=== PATIENT | female | born 1975 | race Caucasian/White ===

== ENCOUNTER 2020-07-18 14:50 | Outpatient (CLI) | payer MEDICAID | END 2020-07-18 23:59 | disposition home or self-care (01) | LOC: LAB.S 14:50 | PROVIDERS: ATTEND Physician Assistant | DX: L08.9 Local infection of the skin and subcutaneous tissue, unspecified (principal) | CPT/HCPCS: 87070; 87205 ==

== ENCOUNTER 2021-02-25 08:46 | Emergency (ER) | payer MEDICAID ==
[2021-02-25] MEDS ORDERED: DEXAMETHASONE 10 MG/ML VIAL PO STA (09:13)
[2021-02-25 09:15] LABS: RAPID STREP SCREEN Negative (Negative)
--- NOTE | 2021-02-25 09:15 | ED Physician Documentation ---
History of Present Illness - Stated complaint Stated Complaint: THROAT PX - Chief complaint Chief Complaint: Heent - History obtained from History obtained from: Patient - History of Present Illness Timing: How many days ago (4) Pain level max: 9 Pain level now: 7 - Additonal information Additional information: Patient is a 45-year-old female who complains of a sore throat for the past 4 days. Worse with swallowing, nothing makes it better. Has not taken anything for the pain. No fevers. Occasional chills. No cough, congestion or rhinorrhea. Has had 1 Covid vaccination. No abdominal pain, nausea or vomiting. No rash. 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: section, Tubal ligation, Other - Present Medications Home Medications: Ambulatory Orders Medication Instructions Recorded Confirmed Fluconazole [Diflucan] 1 tablet PO ONCE 1 Days #1 tablet 02/25/21 Penicillin V Potassium 500 mg PO Q6HR #40 tablet 02/25/21 - Allergies Allergies/Adverse Reactions: Allergies Allergy/AdvReac Type Severity Reaction Status Date / Time naproxen Allergy Severe Respiratory Verified 02/25/21 08:53 - Social History Does the pt smoke?: Yes Smoking Status: Current every day smoker Does the pt drink ETOH?: Yes Does the pt have substance abuse?: Yes Substance Use and Type: Marijuana - Immunizations Immunizations are current?: Yes - POLST Patient has POLST: No PD ED PE NORMAL - Vitals Vital signs reviewed: Yes - General General: Alert and oriented X 3, No acute distress - HEENT HEENT: PERRL, Moist mucous membranes, Other (Posterior oropharynx is erythematous with tonsillar exudates. Normal phonation. No trismus. Uvula midline.) - Neck Neck: Supple, no meningeal sign, Other (shotty anterior LAD) - Cardiac Cardiac: RRR, Strong equal pulses - Respiratory Respiratory: No respiratory distress, Clear bilaterally - Abdomen Abdomen: Soft, Non tender, Non distended - Derm Derm: Warm and dry, No rash - Neuro Neuro: Alert and oriented X 3 - Psych Psych: Normal mood, Normal affect Results - Vitals Vitals: Vital Signs - 24 hr 02/25/21 02/25/21 08:54 09:55 Temperature 37 C 36.8 C Heart Rate 124 H 112 H Respiratory 22 20 Rate Blood Pressure 143/81 H 137/86 H O2 Saturation 97 96 Oxygen O2 Source Room air - Labs Labs: Laboratory Tests 02/25/21 08:05 Group A Strep Rapid Negative PD MEDICAL DECISION MAKING - ED course Complexity details: reviewed results, re-evaluated patient, considered differential, d/w patient ED course: Patient with what appears to be streptococcal pharyngitis. She is well- appearing, nontoxic. Afebrile. Tolerating p.o. without difficulty. Given dexamethasone here. Will place on antibiotics for home. Encouraged continued hydration. Can utilize Tylenol and Motrin for pain at home. Patient counseled regarding signs and symptoms for which I believe and urgent re-evaluation would be necessary. Patient with good understanding of and agreement to plan and is comfortable going home at this time This document was made in part using voice recognition software. While efforts are made to proofread this document, sound alike and grammatical errors may occur. Departure - Departure Disposition: 01 Home, Self Care Clinical Impression: Pharyngitis Qualifiers: Pharyngitis/tonsillitis etiology: unspecified etiology Qualified Code(s): J02.9 - Acute pharyngitis, unspecified Condition: Good Instructions: ED Strep Pharyngitis Poss Follow-Up: your,doctor as needed [Other] Prescriptions: Penicillin V Potassium 500 mg PO Q6HR #40 tablet Fluconazole [Diflucan] 1 tablet PO ONCE 1 Days #1 tablet Comments: Your prescription was sent to [facility] in [place]. Take all antibiotics until gone. This should start to improve within the next 24 hours. Return if you worsen. Discharge Date/Time: 02/25/21 09:55
[2021-02-25] MEDS ORDERED: CHERRY SYRUP 10 ML UDC PO STA (09:16)
[2021-02-25 09:56] VITALS: BP 137/86
== END 2021-02-25 09:55 | disposition home or self-care (01) ==
LOC: ED 08:46
DX: J02.9 Acute pharyngitis, unspecified (principal); Z20.822 Contact with and (suspected) exposure to COVID-19; F17.200 Nicotine dependence, unspecified, uncomplicated
CPT/HCPCS: 87070; 87430; 87635; 99283; 99284; A9270

== ENCOUNTER 2021-02-26 19:54 | Emergency (ER) | payer MEDICAID ==
--- NOTE | 2021-02-26 20:08 | ED Physician Documentation ---
History of Present Illness - Stated complaint Stated Complaint: SORE THROAT/PX - Chief complaint Chief Complaint: Heent - History obtained from History obtained from: Patient - Additonal information Additional information: 45-year-old female who presents with worsening sore throat. Was seen yesterday and diagnosed with strep throat per her symptoms, started on amoxicillin and states pain and swelling are worse today. She is having difficulty opening her mouth or swallowing or turning head side to side. She reports increased swelling and pain particularly on the left side of the neck into the left ear. She is not sure if she has had any fever, but generally feels cold and unwell. She has not been able to tolerate much p.o. today due to pain. She took a Percocet that had leftover which did help somewhat with the pain. Denies chance of , states tubes are tied. 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: Yes Does the pt have substance abuse?: Yes - Immunizations Immunizations are current?: Yes - POLST Patient has POLST: No PD ED PE NORMAL - Vitals Vital signs reviewed: Yes - General General: Alert and oriented X 3, Well developed/nourished, Other (Appears as though she does not feel well) - HEENT HEENT: Atraumatic, Moist mucous membranes, Other (Patient throat is quite sw ollen, increased swelling on the left side 3+ tonsils as compared to the right 2+ uvula midline, mild trismus. There is significant left anterior cervical lymphadenopathy and visible left neck swelling.) - Neck Neck: Supple, no meningeal sign, Other (Left anterior cervical lymphadenopathy). No: No adenopathy - Cardiac Cardiac: RRR (Tachycardic), No murmur - Respiratory Respiratory: No respiratory distress, Clear bilaterally - Abdomen Abdomen: Normal bowel sounds, Soft, Non tender, Non distended - Derm Derm: Normal color, Warm and dry, No rash - Extremities Extremities: No deformity, No tenderness to palpate, Normal ROM s pain - Neuro Neuro: Alert and oriented X 3 Eye Opening: Spontaneous Motor: Obeys Commands Verbal: Oriented GCS Score: 15 - Psych Psych: Normal mood, Normal affect Results - Vitals Vitals: Vital Signs - 24 hr 02/26/21 02/26/21 02/26/21 19:57 20:10 21:18 Temperature 36.5 C 36.5 C 36.6 C Heart Rate 113 H 101 H 99 Respiratory 16 16 18 Rate Blood Pressure 150/86 H 150/86 H 132/85 H O2 Saturation 99 99 99 02/26/21 22:18 Temperature 36.6 C Heart Rate 99 Respiratory 19 Rate Blood Pressure 140/97 H O2 Saturation 96 Oxygen O2 Source Room air - Labs Labs: Laboratory Tests 02/26/21 02/26/21 20:32 20:32 WBC 16.9 H RBC 4.30 Hgb 13.3 Hct 39.5 MCV 91.9 MCH 30.9 MCHC 33.7 RDW 12.1 Plt Count 322 MPV 9.4 Neut # (Auto) Not Reportable Lymph # (Auto) Not Reportable Mcn[place] # (Auto) Not Reportable Eos # (Auto) Not Reportable Baso # (Auto) Not Reportable Absolute Nucleated RBC Not Reportable Total Counted 100 Band Neuts % (Manual) 0 Abnorm Lymph % (Manual) 0 Nucleated RBC % Not Reportable Neutrophils # (Manual) 10.0 H Lymphocytes # (Manual) 4.1 H Monocytes # (Manual) 2.7 H Eosinophils # (Manual) 0.2 Basophils # (Manual) 0.0 Differential Comment MANUAL DIFFERENTIAL WBC Morphology NORMAL APPEARANCE Platelet Estimate NORMAL (130-450,000) Platelet Morphology NORMAL APPEARANCE RBC Morph Micro Appear NORMAL APPEARANCE Sodium 137 Potassium 3.6 Chloride 103 Carbon Dioxide 26 Anion Gap 8.0 BUN 19 Creatinine 0.5 Estimated GFR (MDRD) 134 Glucose 107 H Calcium 9.4 Total Bilirubin 0.5 AST 14 ALT 20 Alkaline Phosphatase 69 Total Protein 7.6 Albumin 4.1 Globulin 3.5 Albumin/Globulin Ratio 1.2 Lipase 204 H PD MEDICAL DECISION MAKING - ED course Complexity details: reviewed results, re-evaluated patient, considered differential, d/w patient, d/w leadership development consultant ED course: This is a 45-year-old female who presented with acute worsening of sore throat primarily on the left side. Her clinical exam was suspicious for a peritonsillar abscess therefore I proceeded with a CT scan of her neck and administered Decadron, Unasyn, morphine. CT confirmed a 2 cm left peritonsillar abscess. Patient is in no respiratory distress, she is able to lay flat and her airway is patent. She is not drooling or stridorous. She reports some relief after morphine and Decadron. I discussed this case with the oral maxillofacial surgeon Dr. Real who advised to give a second dose of Decadron, and start the patient on Augmentin and have her follow-up in his clinic at 8 AM tomorrow. Patient was advised of these instructions including remaining n.p.o. after midnight and arriving to the clinic at 8 AM for possible I&D of peritonsillar abscess. She was provided with the correct address for the clinic and phone number to call if there were issues attending the appointment. The patient was given 4 tablets of [place] for use overnight as needed. She will miner pick Augmentin in the morning, I gave her a dose of Unasyn here tonight. She is to return to the ER at any point time if she feels worse or any respiratory distress. Departure - Departure Disposition: 01 Home, Self Care Clinical Impression: Peritonsillar abscess Condition: Good Follow-Up: Vu Real DDS [Provider Admit Priv/Credential] - Prescriptions: Amox/Clav 875/125 [Augmentin] 1 each PO Q12H #20 tablet Ondansetron Odt [Zofran] 4 mg TL Q6H PRN #10 tablet PRN Reason: Nausea / Vomiting Comments: You presented with a worsening sore throat and were found on CT scan to have a left peritonsillar abscess. We have given you additional steroids and pain medication to help decrease the swelling and pain in this area. We are changing her antibiotics from penicillin to Augmentin. Please stop taking the penicillin and miner pick the Augmentin at your pharmacy in the morning. I have discussed your case with the oral maxillofacial surgeon Dr. Real who would like to see you at 8 AM in his office tomorrow morning. It is important that you do not eat anything tonight until your visit with Dr. Real in the morning. It is extremely important that you keep this appointment as the abscess may need to be drained.
[2021-02-26] MEDS ORDERED: AMPICILLIN/SULBACTAM 3 GM in SODIUM CHLORIDE 0.9% MINIBAG 100 ML IV STA (20:25)
[2021-02-26] MEDS ORDERED: MORPHINE 2 MG/ML CARPUJECT IVP STA ×2 (20:26→22:18)
[2021-02-26] MEDS ORDERED: SODIUM CHLORIDE 0.9% 1,000 ML IV STA (20:26)
[2021-02-26] MEDS ORDERED: DEXAMETHASONE 10 MG/ML VIAL IVP STA ×2 (20:26→22:06)
[2021-02-26 20:36] LABS: BASOPHILS % (AUTO) 0.3 %; EOSINOPHILS % (AUTO) 0.5 %; HCT - HEMATOCRIT 39.5 % (37.0-47.0); HGB - HEMOGLOBIN 13.3 g/dL (12.0-16.0); MEAN CORPUSCULAR HEMOGLOBIN 30.9 pg (27.0-31.0); MEAN CORPUSCULAR HGB CONC 33.7 g/dL (32.0-36.0); MEAN CORPUSCULAR VOLUME 91.9 fL (81.0-99.0); MEAN PLATELET VOLUME 9.4 fL (7.9-10.8); MONOCYTES % (AUTO) 9.9 %; NEUTROPHILS % (AUTO) 70.9 %; PLT - PLATELET COUNT 322 10^3/uL (130-450); RED CELL DISTRIBUTION WIDTH 12.1 % (12.0-15.0); WHITE BLOOD COUNT 16.9 x10^3/uL (4.8-10.8)
[2021-02-26] MEDS ORDERED: IOVERSOL 320 100 ML VIAL IVP ONE ×2 (20:36→21:15)
[2021-02-26 20:39] LABS: ABNORMAL LYMPHS % (MANUAL) 0 %; BAND NEUTROPHILS % (MANUAL) 0 %
[2021-02-26] MEDS ORDERED: ONDANSETRON 4 MG/2 ML VIAL IVP STA (20:44)
[2021-02-26 20:51] LABS: ALBUMIN 4.1 g/dL (3.2-5.5); ALBUMIN/GLOBULIN RATIO 1.2 (1.0-2.2); BILIRUBIN,TOTAL 0.5 mg/dL (0.2-1.0); CALCIUM 9.4 mg/dL (8.5-10.3); CREATININE 0.5 mg/dL (0.4-1.0); POTASSIUM 3.6 mmol/L (3.5-5.0); TOTAL PROTEIN 7.6 g/dL (6.7-8.2)
[2021-02-26 21:03] LABS: EOSINOPHILS # (MANUAL) 0.2 10^3/uL (0-0.7); LYMPHOCYTES # (MANUAL) 4.1 10^3/uL (1.5-3.5); LYMPHOCYTES % (MANUAL) 24 %; MONOCYTES # (MANUAL) 2.7 10^3/uL (0.0-1.0)
[2021-02-26 21:04] LABS: DIFFERENTIAL COMMENT MANUAL DIFFERENTIAL; PLATELET ESTIMATE, MANUAL NORMAL (130-450,000) (NORMAL); PLATELET MORPHOLOGY NORMAL APPEARANCE (NORMAL); RBC MORPHOLOGY (MULTIPLE) NORMAL APPEARANCE (NORMAL); WBC MORPHOLOGY (MULTIPLE) NORMAL APPEARANCE (NORMAL)
--- NOTE | 2021-02-26 21:54 | CT Report ---
PROCEDURE: SOFT TISSUE NECK W INDICATIONS: concern for peritonsilar abscess CONTRAST: IV CONTRAST: Optiray 320 ml: 100 PO CONTRAST: *NO PO CONTRAST TECHNIQUE: After the administration of intravenous contrast, 3.0 mm axial sections acquired from the sella to th e aortic arch. Additional oblique axial 3.0 mm sections acquired through the pharynx. 3 mm thick co lauri reformats were generated. For radiation dose reduction, the following was used: automated exp osure control, adjustment of mA and/or kV according to patient size. COMPARISON: None. FINDINGS: Image quality: Excellent. Lymph nodes: No enlarged lymph nodes seen throughout the neck. Vessels: Visualized vasculature appears patent. Neck spaces: There is a left peritonsillar abscess measuring 2 cm in diameter. The airway is patent. The vocal cords, false vocal cords, pyriform sinuses, epiglottis, vallecula, and tongue base all lourdes ear normal. Extramucosal spaces appear unremarkable. Glands: The parotid and submandibular glands appear normal. The thyroid is normal in size and there are no incidental findings. Miscellaneous: Visualized brain and orbits appear normal. Lung apices appear clear. Superficial so ft tissues appear normal. Bones: No suspicious bony lesions. Visualized sinuses and mastoids appear unremarkable. IMPRESSION: Left peritonsillar abscess measuring 2 cm in diameter. The abscess narrows the airway, ho wever the airway is patent. Reviewed by: Modesto Sewell on 02/26/2021 9:53 PM PDT Approved by: Modesto Sewell on 02/26/2021 9:53 PM PDT Station ID: [id number]
[2021-02-26] MEDS ORDERED: HYDROcod/ACET 5/325 Prepack 4 PO STA (22:10)
[2021-02-26 22:19] VITALS: BP 140/97
== END 2021-02-26 22:28 | disposition home or self-care (01) ==
LOC: ED 19:54
DX: J36 Peritonsillar abscess (principal); F17.200 Nicotine dependence, unspecified, uncomplicated
CPT/HCPCS: 36415; 70491; 80053; 83690; 85025; 96361; 96365; 96375; 96376; 99283; 99284; Q9967

== ENCOUNTER 2022-01-10 18:12 | Emergency (ER) | payer MEDICAID ==
--- NOTE | 2022-01-10 20:09 | ED Physician Documentation ---
PD HPI SKIN - Stated complaint Stated Complaint: SPIDER BITE - Chief complaint Chief Complaint: Wound - History obtained from History obtained from: Patient - History of Present Illness Timing - onset: Other (different time frames (see narrative below)) Location: RUE, Genitals, Other (throat) Quality / character: Painful Associated symptoms: No: Fever - Additional information Additional information: patient has three c/o: 1) right volar wrist pain and swelling x 3 days, no trauma. She is right hand dominant. 2) sore throat x 2 days 3) lesion on right labia x months, "gets infected sometimes but isn't now" (per patient). 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, Tubal ligation, Other - Present Medications Home Medications: Ambulatory Orders Medication Instructions Recorded Confirmed Fluconazole [Diflucan] 1 tablet PO ONCE 1 Days #1 tablet 02/25/21 02/26/21 Amox/Clav 875/125 [Augmentin] 1 each PO Q12H #20 tablet 02/26/21 Ondansetron Odt [Zofran] 4 mg TL Q6H PRN #10 tablet 02/26/21 Amox/Clav 875/125 [Augmentin 1 tablet PO Q12H 10 Days #20 tablet 01/10/22 875/125 Tab] - Allergies Allergies/Adverse Reactions: Allergies Allergy/AdvReac Type Severity Reaction Status Date / Time naproxen Allergy Severe Respiratory Verified 01/10/22 18:30 - Social History Does the pt smoke?: Yes Smoking Status: Current every day smoker Does the pt drink ETOH?: Yes Does the pt have substance abuse?: Yes - Immunizations Immunizations are current?: Yes - POLST Patient has POLST: No PD ED PE NORMAL - Vitals Vital signs reviewed: Yes - General General: Alert and oriented X 3, No acute distress, Well developed/nourished - HEENT HEENT: Other (mild posterior oropharyngeal erythema without exudate or edema) PD ED PE EXPANDED - Female Female : Other (3mm diameter nodule , nontender and without fluctuance, outer aspect of right labia minora with punctate central opening ). No: Vaginal Discharge - Extremities Extremities: Tenderness, Swelling ELIZABETH UE/Hands Visual: 1 - swelling (mild swelling, trace and poorly marginated erythema, no fluctuance, 2mm punctate break in skin that is scabbed over and minimally tender) Results - Vitals Vitals: Vital Signs - 24 hr 01/10/22 18:25 Temperature 36.4 C L Heart Rate 109 H Respiratory 16 Rate Blood Pressure 116/84 H O2 Saturation 97 Oxygen O2 Source Room air PD MEDICAL DECISION MAKING - ED course Complexity details: considered differential, d/w patient ED course: pharyngitis and right wrist cellulitis, should get appropriate coverage for both with augmentin (given in ED and rx provided). The lesion on her labia has been there "for months" (per patient) and appearance and description is suggestive of cyst or ingrown hair with sinus tract (visualized) and no evidence of infection at this time. I instructed her to follow up with nutritional services cook for reevaluation of this lesion, as testing might be needed to determine nature of the lesion Departure - Departure Disposition: 01 Home, Self Care Clinical Impression: Cellulitis Qualifiers: Site of cellulitis: extremity Site of cellulitis of extremity: upper extremity Laterality: right Qualified Code(s): L03.113 - Cellulitis of right upper limb Pharyngitis Qualifiers: Pharyngitis/tonsillitis etiology: unspecified etiology Qualified Code(s): J02.9 - Acute pharyngitis, unspecified Condition: Good Instructions: ED Infec Skin Cellulitis, ED Strep Pharyngitis Poss Prescriptions: Amox/Clav 875/125 [Augmentin 875/125 Tab] 1 tablet PO Q12H 10 Days #20 tablet Comments: An antibiotic was given in the ER (augmentin), with a prescription for this antibiotic electronically submitted to [facility] in [place]. Please follow up with your primary care provider within 1-2 weeks for reevaluation. If you do not have a primary care provider assigned, contact your insurance pr ovider to ask for options for local primary care
[2022-01-10] MEDS ORDERED: AMOX/CLAV 875 MG/125 MG TABLET PO STA (20:32)
[2022-01-10] MEDS ORDERED: FLUCONAZOLE 100 MG TABLET PO STA (20:40)
[2022-01-10 20:56] VITALS: BP 118/81
== END 2022-01-10 20:54 | disposition home or self-care (01) ==
LOC: ED 18:12
DX: N90.89 Other specified noninflammatory disorders of vulva and perineum (principal); L03.113 Cellulitis of right upper limb; J02.9 Acute pharyngitis, unspecified; F17.200 Nicotine dependence, unspecified, uncomplicated
CPT/HCPCS: 99282; 99284; A9270

== ENCOUNTER 2022-01-13 14:54 | Emergency (ER) | payer MEDICAID ==
--- NOTE | 2022-01-13 15:17 | ED Physician Documentation ---
PD HPI SKIN - Stated complaint Stated Complaint: R ARM SWELLING - Chief complaint Chief Complaint: Ext Problem - History obtained from History obtained from: Patient - History of Present Illness Timing - onset: How many days ago (4-5) Timing - duration: Days (4-5) Timing - details: Gradual onset, Still present (The redness pain and swelling have not decreased at all in the last 3 days after starting the antibiotics Augmentin.) Location: RUE (volar wrist) Quality / character: Painful, Discolored (red), Swelling. No: Vesicular Associated symptoms: Joint pain (generally). No: Fever, Myalgias, Headache, N/V/D Contributing factors: Insect bite /sting (She believes she may have been bitten by a insect or spider that initiated the redness in the area. No noted skin abrasions or lacerations.) Similar symptoms before: Has not had sx before Recently seen: Emergency Dept (She was seen 3 days ago here in the ER for the wrist redness and swelling and diagnosed with the patient cellulitis and started on Augmentin. She had some sore throat as well.) Review of Systems Constitutional: denies: Fever, Chills, Myalgias Nose: denies: Rhinorrhea / runny nose, Congestion Throat: reports: Sore throat Respiratory: denies: Cough GI: denies: Abdominal Pain, Nausea, Vomiting, Diarrhea Neurologic: denies: Focal weakness, Numbness PD PAST MEDICAL HISTORY - Past Medical History Cardiovascular: None Respiratory: None Neuro: None Endocrine/Autoimmune: None GI: None VISCOSE CELLAR CHARGE HAND: Other : None HEENT: None Psych: None Musculoskeletal: Osteoarthritis Derm: None - Past Surgical History Past Surgical History: Yes /VISCOSE CELLAR CHARGE HAND: section, Tubal ligation, Other - Present Medications Home Medications: Ambulatory Orders Medication Instructions Recorded Confirmed Fluconazole [Diflucan] 1 tablet PO ONCE 1 Days #1 tablet 02/25/21 02/26/21 Amox/Clav 875/125 [Augmentin] 1 each PO Q12H #20 tablet 02/26/21 Ondansetron Odt [Zofran] 4 mg TL Q6H PRN #10 tablet 02/26/21 Amox/Clav 875/125 [Augmentin 1 tablet PO Q12H 10 Days #20 tablet 01/10/22 875/125 Tab] Doxycycline Hyclate 100 mg PO BID 5 Days #10 cap 01/13/22 HYDROcod/ACETAM 5/325 [[place] 5/325] 1 ea PO Q6H PRN #12 tablet 01/13/22 cephALEXin [Keflex] 500 mg PO QID 5 Days #20 cap 01/13/22 - Allergies Allergies/Adverse Reactions: Allergies Allergy/AdvReac Type Severity Reaction Status Date / Time naproxen Allergy Severe Respiratory Verified 01/13/22 15:08 - Social History Does the pt smoke?: Yes Smoking Status: Current every day smoker Does the pt drink ETOH?: Yes Does the pt have substance abuse?: Yes - Immunizations Immunizations are current?: Yes - POLST Patient has POLST: No PD ED PE NORMAL - Vitals Vital signs reviewed: Yes (tachycardic to 140s; sinus vs SVT.) - General General: Alert and oriented X 3 - Neck Neck: Supple, no meningeal sign, No adenopathy - Cardiac Cardiac: No: RRR (tachycardic but regular. No murmur. ) - Respiratory Respiratory: Clear bilaterally - Abdomen Abdomen: Soft, Non tender - Derm Derm: Normal color, Warm and dry - Extremities Extremities: Other (Right forearm with redness and swelling on the volar ulnar side. Locally tender. There is no tenderness in the forearm muscles proximally. Good color and capillary refill in the fingers. Good pulses at the wrist. No skin lesions or punctures noted. No fluctuance or fluid collections.) - Neuro Neuro: Alert and oriented X 3, No motor deficit, No sensory deficit, Normal speech Results - Vitals Vitals: Vital Signs - 24 hr 01/13/22 01/13/22 01/13/22 15:02 15:46 16:21 Temperature 36.5 C Heart Rate 154 H 149 H 123 H Respiratory 24 22 28 H Rate Blood Pressure 122/93 H 116/72 165/123 H O2 Saturation 97 95 100 01/13/22 01/13/22 16:36 17:16 Temperature Heart Rate 120 H 109 H Respiratory 20 20 Rate Blood Pressure 104/86 H 125/85 H O2 Saturation 100 99 Oxygen O2 Source Room air - EKG (time done) 15:24 Rate: Rate (enter#) (136) Rhythm: Sinus tachycardia [place]: Normal Intervals: Normal AR QRS: Normal Ischemia: Normal ST segments. No: ST elevation c/w ischemia, ST depression - Labs Labs: Laboratory Tests 01/13/22 01/13/22 01/13/22 15:37 15:37 15:50 WBC 9.0 RBC 4.59 Hgb 13.8 Hct 40.3 MCV 87.8 MCH 30.1 MCHC 34.2 RDW 12.1 Plt Count 281 MPV 9.9 Neut # (Auto) 5.1 Lymph # (Auto) 2.7 [place] # (Auto) 1.0 Eos # (Auto) 0.2 Baso # (Auto) 0.0 Absolute Nucleated RBC 0.00 Nucleated RBC % 0.0 Sodium 136 Potassium 3.6 Chloride 102 Carbon Dioxide 26 Anion Gap 8.0 BUN 18 Creatinine 0.6 Estimated GFR (MDRD) 108 Glucose 141 H Lactic Acid 1.4 Calcium 9.6 Total Bilirubin 0.6 AST 16 ALT 18 Alkaline Phosphatase 74 Total Protein 7.2 Albumin 3.9 Globulin 3.3 Albumin/Globulin Ratio 1.2 Lipase 31 PD MEDICAL DECISION MAKING - ED course Complexity details: reviewed results, re-evaluated patient (The patient's heart rate is improved from 140 down to approximately 115. She is still somewhat tachycardic but seems to be related to pain, hydration and possibly substance. It does not appear to be related to infection/sepsis. I therefore feel comfortable discharged still mildly tachycardic.), considered differential (The degree of her redness and swelling on the forearm without fever or other general symptoms do not really sound like sepsis. She is tachycardic but seems more SVT or perhaps related to substances or such. We will do labs to evaluate for sepsis.), d/w patient ED course: She presented with persisting redness swelling and tenderness in the right volar wrist and forearm unchanged with Augmentin for the last 3 days. She states she was noticing her heart rate feeling faster. She presents in apparent sinus tachycardia. Initial monitor could possibly look like SVT. However there was some variability down to 130. I think it was related more to pain and anxiety. She was very anxious about the wrist infection. She also had some issues going on with her sister and her daughter who was with her sister. There is no deep tenderness in the forearm to suggest tenosynovitis. Locally tender at the redness. White count and lactate are normal so no obvious sepsis. The patient did not want any opioid pain medicine here as she wanted to not be sedated at all or "foggy" because of the texting discussion with her sister. We did give dose of ceftriaxone as well as some IV fluids and IV diltiazem. This slowed her heart rate down to approximately 110. At this point I felt comfortable with her being mildly tachycardic given the emotional circumstances. Her blood pressure remained good throughout. With the blood test results showing no signs of obvious sepsis, I was also more reassuring. The patient does wish to be discharged. At this point I feel comfortable with her being mildly tachycardic still. I will switch her from Augmentin to combination of cephalexin and doxycycline for the persistent cellulitis. She can use ibuprofen 2 or 3 times daily. She has taken that in the past. She is allergic to naproxen. She also can take Tylenol. She is given a wrist splint to reduce motion at the wrist for comfort. She should return or recheck if not improved over the next 2 to 3 days. Return sooner if worse. Departure - Departure Disposition: 01 Home, Self Care Clinical Impression: Sinus tachycardia, Cellulitis of right wrist Condition: Stable Record reviewed to determine appropriate education?: Yes Instructions: ED Infec Skin Cellulitis Prescriptions: Doxycycline Hyclate 100 mg PO BID 5 Days #10 cap cephALEXin [Keflex] 500 mg PO QID 5 Days #20 cap HYDROcod/ACETAM 5/325 [[place] 5/325] 1 ea PO Q6H PRN #12 tablet PRN Reason: Pain Comments: Your white count and lactate and basic electrolytes are normal so no signs of sepsis. It does not appear concerning for continued cellulitis infection of the area. I would have you discontinue the Augmentin and changed to a combination of cephalexin and doxycycline to have more specific coverage for both staph and strep. He can use anti-inflammatory such as ibuprofen 2-3 times daily. Add Tylenol every 4-6 hours if needed for pain. I did write a prescription for hydrocodone/acetaminophen if needed for worse pain. Stay well-hydrated. You can use the wrist splint to protect the wrist if its more comfortable. You do not have to have the wrist splint on. I sent your prescriptions to [facility] in [place]. I am prescribing a short course of narcotic pain medication for you. These are potentially dangerous and addictive medications that should be used carefully. These medications may constipate you. Take an [id number] stool softener such as docusate twice daily with plenty of water while taking these medications. If you go 24 hours without a bowel movement, take [id number] MiraLAX, per package instructions. Do not drink or drive while taking these medications. If you received narcotic or sedating medications while in the emergency department do not drive for 24 hours. Store this medication in a safe, secure place and out of reach of children. It is a violation of federal law to give or sell this medication to another person or to use in a manner other than prescribed. The ED will not refill narcotic prescriptions, including prescriptions lost or stolen. You can dispose of unwanted medications at the [facility] office or at several pharmacies such as [facility].
[2022-01-13 15:57] LABS: BASOPHILS % (AUTO) 0.4 %; EOSINOPHILS # (AUTO) 0.2 10^3/uL (0.0-0.7); EOSINOPHILS % (AUTO) 1.8 %; HCT - HEMATOCRIT 40.3 % (37.0-47.0); HGB - HEMOGLOBIN 13.8 g/dL (12.0-16.0); LYMPHOCYTES # (AUTO) 2.7 10^3/uL (1.5-3.5); LYMPHOCYTES % (AUTO) 30.2 %; MEAN CORPUSCULAR HEMOGLOBIN 30.1 pg (27.0-31.0); MEAN CORPUSCULAR HGB CONC 34.2 g/dL (32.0-36.0); MEAN CORPUSCULAR VOLUME 87.8 fL (81.0-99.0); MEAN PLATELET VOLUME 9.9 fL (7.9-10.8); MONOCYTES % (AUTO) 10.8 %; NEUTROPHILS # (AUTO) 5.1 10^3/uL (1.5-6.6); NEUTROPHILS % (AUTO) 56.6 %; PLT - PLATELET COUNT 281 10^3/uL (130-450); RED BLOOD COUNT 4.59 10^6/uL (4.20-5.40); RED CELL DISTRIBUTION WIDTH 12.1 % (12.0-15.0)
[2022-01-13 16:09] LABS: ALBUMIN 3.9 g/dL (3.2-5.5); ALBUMIN/GLOBULIN RATIO 1.2 (1.0-2.2); BILIRUBIN,TOTAL 0.6 mg/dL (0.2-1.0); CALCIUM 9.6 mg/dL (8.5-10.3); CREATININE 0.6 mg/dL (0.4-1.0); POTASSIUM 3.6 mmol/L (3.5-5.0); TOTAL PROTEIN 7.2 g/dL (6.7-8.2)
[2022-01-13] MEDS: cefTRIAXone 1 GM VIAL IVP STA (16:20)
[2022-01-13] MEDS: diltiaZEM INJ 5 MG/ML VIAL IVP STA (16:20)
[2022-01-13] MEDS: SODIUM CHLORIDE 0.9% 1,000 ML IV STA (16:20)
[2022-01-13] MEDS: ACETAMINOPHEN 325 MG TABLET PO STA (16:21)
[2022-01-13] MEDS: DOXYCYCLINE 100 MG TABLET PO STA (17:13)
[2022-01-13] MEDS: HYDROmorphone 1 MG/ML CARPUJECT IVP STA (17:15)
[2022-01-13 17:17] VITALS: BP 125/85
== END 2022-01-13 17:40 | disposition home or self-care (01) ==
LOC: ED 14:54
DX: R00.0 Tachycardia, unspecified (principal); L03.113 Cellulitis of right upper limb; F17.200 Nicotine dependence, unspecified, uncomplicated
CPT/HCPCS: 36415; 80053; 83605; 83690; 85025; 87040; 93005; 96361; 96374; 96375; 99282; 99284; A9270; J1170

== ENCOUNTER 2022-06-07 08:00 | Outpatient (CLI) | payer MEDICAID ==
[2022-06-07 22:52] LABS: BACTERIAL VAGINOSIS DNA NEGATIVE (NEGATIVE); CANDIDA GLABRATA DNA NEGATIVE (NEGATIVE); CANDIDA GROUP DNA NEGATIVE (NEGATIVE); CANDIDA KRUSEI DNA NEGATIVE (NEGATIVE); TRICHOMONAS VAGINALIS DNA POSITIVE (NEGATIVE)
[2022-06-08 00:29] LABS: CHLAMYDIA TRACHOMATIS DNA NEGATIVE (NEGATIVE); NEISSERIA GONORRHOEAE DNA NEGATIVE (NEGATIVE)
== END 2022-06-07 23:59 | disposition home or self-care (01) ==
LOC: LAB.S 08:00
PROVIDERS: ATTEND Physician Assistant Medical
DX: N76.0 Acute vaginitis (principal); Z20.2 Contact with and (suspected) exposure to infections with a predominantly sexual mode of transmission
CPT/HCPCS: 81514; 87491; 87591; 87661

== ENCOUNTER 2022-10-09 08:00 | Outpatient (CLI) | payer MEDICAID ==
[2022-10-09 20:22] LABS: BACTERIAL VAGINOSIS DNA NEGATIVE (NEGATIVE); CANDIDA GLABRATA DNA NEGATIVE (NEGATIVE); CANDIDA GROUP DNA NEGATIVE (NEGATIVE); CANDIDA KRUSEI DNA NEGATIVE (NEGATIVE); TRICHOMONAS VAGINALIS DNA POSITIVE (NEGATIVE)
[2022-10-10 17:47] LABS: CHLAMYDIA TRACHOMATIS DNA NEGATIVE (NEGATIVE); NEISSERIA GONORRHOEAE DNA NEGATIVE (NEGATIVE)
== END 2022-10-09 23:59 | disposition home or self-care (01) ==
LOC: LAB.S 08:00
PROVIDERS: ATTEND Physician Assistant Medical
DX: N76.0 Acute vaginitis (principal)
CPT/HCPCS: 81514; 87491; 87591; 87661

== ENCOUNTER 2022-11-08 08:00 | Outpatient (CLI) | payer MEDICAID ==
[2022-11-09 02:44] LABS: CHLAMYDIA TRACHOMATIS DNA NEGATIVE (NEGATIVE); NEISSERIA GONORRHOEAE DNA NEGATIVE (NEGATIVE); TRICHOMONAS VAGINALIS DNA NEGATIVE (NEGATIVE)
[2022-11-09 05:51] LABS: BACTERIAL VAGINOSIS DNA NEGATIVE (NEGATIVE); CANDIDA GLABRATA DNA NEGATIVE (NEGATIVE); CANDIDA GROUP DNA NEGATIVE (NEGATIVE); CANDIDA KRUSEI DNA NEGATIVE (NEGATIVE); TRICHOMONAS VAGINALIS DNA NEGATIVE (NEGATIVE)
== END 2022-11-08 23:59 | disposition home or self-care (01) ==
LOC: LAB.S 08:00
PROVIDERS: ATTEND Physician Assistant Medical
DX: N39.0 Urinary tract infection, site not specified (principal); N76.0 Acute vaginitis
CPT/HCPCS: 81514; 87077; 87086; 87491; 87591; 87661

== ENCOUNTER 2023-02-27 08:00 | Outpatient (CLI) | payer MEDICAID | END 2023-02-27 23:59 | disposition home or self-care (01) | LOC: LAB.S 08:00 | PROVIDERS: ATTEND Physician Assistant | DX: Z20.2 Contact with and (suspected) exposure to infections with a predominantly sexual mode of transmission (principal) | CPT/HCPCS: 87086; 87181; 87491; 87591; 87661 ==

== ENCOUNTER 2023-03-01 08:00 | Outpatient (CLI) | payer MEDICAID ==
[2023-03-01 22:24] LABS: NEISSERIA GONORRHOEAE DNA NEGATIVE (NEGATIVE); TRICHOMONAS VAGINALIS DNA NEGATIVE (NEGATIVE)
[2023-03-01 22:25] LABS: CHLAMYDIA TRACHOMATIS DNA POSITIVE (NEGATIVE)
== END 2023-03-01 23:59 | disposition home or self-care (01) ==
LOC: LAB 08:00
PROVIDERS: ATTEND Physician Assistant
DX: Z20.2 Contact with and (suspected) exposure to infections with a predominantly sexual mode of transmission (principal)
CPT/HCPCS: 87491; 87591; 87661

== ENCOUNTER 2023-04-11 08:00 | Outpatient (CLI) | payer MEDICAID ==
[2023-04-12 20:34] LABS: CHLAMYDIA TRACHOMATIS DNA NEGATIVE (NEGATIVE); NEISSERIA GONORRHOEAE DNA NEGATIVE (NEGATIVE)
[2023-04-12 21:29] LABS: BACTERIAL VAGINOSIS DNA POSITIVE (NEGATIVE); CANDIDA GLABRATA DNA NEGATIVE (NEGATIVE); CANDIDA GROUP DNA NEGATIVE (NEGATIVE); CANDIDA KRUSEI DNA NEGATIVE (NEGATIVE); TRICHOMONAS VAGINALIS DNA NEGATIVE (NEGATIVE)
== END 2023-04-11 23:59 | disposition home or self-care (01) ==
LOC: LAB.S 08:00
PROVIDERS: ATTEND Physician Assistant Medical
DX: N76.0 Acute vaginitis (principal); Z20.2 Contact with and (suspected) exposure to infections with a predominantly sexual mode of transmission
CPT/HCPCS: 81514; 87491; 87591; 87661

== ENCOUNTER 2023-08-01 07:00 | Outpatient (CLI) | payer MEDICAID ==
[2023-08-01 23:11] LABS: CHLAMYDIA TRACHOMATIS DNA NEGATIVE (NEGATIVE); NEISSERIA GONORRHOEAE DNA NEGATIVE (NEGATIVE)
[2023-08-02 00:34] LABS: BACTERIAL VAGINOSIS DNA POSITIVE (NEGATIVE); CANDIDA GLABRATA DNA NEGATIVE (NEGATIVE); CANDIDA GROUP DNA NEGATIVE (NEGATIVE); CANDIDA KRUSEI DNA NEGATIVE (NEGATIVE); TRICHOMONAS VAGINALIS DNA NEGATIVE (NEGATIVE)
== END 2023-08-01 23:59 | disposition home or self-care (01) ==
LOC: LAB.S 07:00
PROVIDERS: ATTEND Registered Nurse
DX: N76.0 Acute vaginitis (principal); Z20.2 Contact with and (suspected) exposure to infections with a predominantly sexual mode of transmission
CPT/HCPCS: 81514; 87491; 87591; 87661